=== PATIENT | male | born 1935 | race Caucasian/White ===

== ENCOUNTER → 2018-05-22 16:14 | Outpatient (CLI) | payer MEDICARE, OTHER, SELFPAY ==
--- NOTE | 2018-05-22 | DI.US.S_ITS ---
PROCEDURE: US ARTERIAL DUPLEX LE BI INDICATIONS: LOWER EXTREMITY PAIN TECHNIQUE: Color and pulse Doppler interrogation was performed of both lower extremity arterial systems, with image documentation. COMPARISON: None. FINDINGS: Right lower extremity: Common femoral artery: 174 cm/sec, with biphasic flow. Deep femoral artery: 65 cm/sec, with biphasic flow. Proximal superficial femoral artery: 99 cm/sec, with biphasic flow. Mid superficial femoral artery: 96 cm/sec, with triphasic flow. Distal superficial femoral artery: 109 cm/sec, with triphasic flow. Popliteal artery: 82 cm/sec, with triphasic flow. Posterior tibial artery: 135 cm/sec, with triphasic flow. Anterior tibial artery/dorsalis pedis: 33 cm/sec, with biphasic flow. Haynes-scale imaging description: Mild diffuse plaque Left lower extremity: Common femoral artery: 136 cm/sec, with biphasic flow. Deep femoral artery: 43 cm/sec, with biphasic flow. Proximal superficial femoral artery: 99 cm/sec, with triphasic flow. Mid superficial femoral artery: 97 cm/sec, with triphasic flow. Distal superficial femoral artery: 75 cm/sec, with biphasic flow. Popliteal artery: 103 cm/sec, with triphasic flow. Posterior tibial artery: 86 cm/sec, with triphasic flow. Anterior tibial artery/dorsalis pedis: 13 cm/sec, with monophasic flow. Haynes-scale imaging description: Mild diffuse plaque IMPRESSION: 1. Reduced flow within the left anterior tibial artery. Patent left posterior tibial artery. 2. No evidence of right lower extremity arterial insufficiency. Dictated by: Theodore Galaviz M.D. on 05/22/2018 at 16:55 Approved by: Theodore Galaviz M.D. on 05/22/2018 at 16:57
== END ==
PROVIDERS: PCP Internal Medicine; Visit Provider Internal Medicine
DX: M79.605 Pain in left leg (principal); M79.604 Pain in right leg
CPT/HCPCS: 93925

== ENCOUNTER → 2020-08-29 12:19 | Outpatient (CLI) | payer MEDICARE, OTHER, SELFPAY ==
[2020-08-29 12:47] LABS: Add Manual Diff / Slide Review NO; Basophils Absolute Auto 0 /uL (0-100); Basophils Percent Auto 0.8 % (0-2); Eosinophils Absolute Auto 100 /uL (0-450); Eosinophils Percent Auto 1.6 % (2-4); Hematocrit 48.5 % (41-53); Hemoglobin 16.9 g/dL (13.5-17.5); Lymphocytes Absolute Auto 1500 /uL (1100-4500); Lymphocytes Percent Auto 27.7 % (25-40); Mean Corpuscular Hemoglobin 31.1 PG (26-34); Mean Corpuscular Volume 88.9 fL (80-100); Monocytes Absolute Auto 500 /uL (0-900); Monocytes Percent Auto 8.5 % (3-14); Neutrophils Absolute Auto 3400 /uL (1500-7000); Neutrophils Percent Auto 61.4 % (50-75); Platelet Count 117 X10^3/uL (150-400); Red Blood Cell Count 5.45 X10^6/uL (4.5-5.9); Red Cell Distribution Width 13.7 % (11.6-14.8); White Blood Cell Count 5.5 X10^3/uL (4.5-11.0)
[2020-08-29 13:05] LABS: Uric Acid 4.4 mg/dL (3.5-8.5)
[2020-08-29 13:28] LABS: Erythrocyte Sedimentation Rate 1 MM/HR (0-15)
== END ==
PROVIDERS: PCP Internal Medicine; Referring Provider Dermatology; Visit Provider Dermatology
DX: L03.90 Cellulitis, unspecified (principal)
CPT/HCPCS: 36415; 84550; 85025; 85651

== ENCOUNTER → 2020-09-27 13:04 | Outpatient (ROUT) | payer MEDICARE, OTHER, SELFPAY | PROVIDERS: PCP Internal Medicine; Visit Provider Dermatology | DX: E11.621 Type 2 diabetes mellitus with foot ulcer (principal); L08.9 Local infection of the skin and subcutaneous tissue, unspecified | CPT/HCPCS: 87070; 87075; 87077; 87186; 87205 ==

== ENCOUNTER → 2020-10-05 14:44 | Outpatient (CLI) | payer MEDICARE, OTHER, SELFPAY | PROVIDERS: Referring Provider Dermatology; Visit Provider Family Medicine | DX: E11.621 Type 2 diabetes mellitus with foot ulcer (principal); L97.516 Non-pressure chronic ulcer of other part of right foot with bone involvement without evidence of necrosis; L03.031 Cellulitis of right toe; E11.40 Type 2 diabetes mellitus with diabetic neuropathy, unspecified; Z79.2 Long term (current) use of antibiotics | CPT/HCPCS: 11042; 73630; 93922; 97597; 99205; 99213 ==

== ENCOUNTER → 2020-10-05 16:00 | Outpatient (CLI) | payer MEDICARE, OTHER, SELFPAY ==
--- NOTE | 2020-10-05 16:04 | DI.RAD.S_ITS ---
PROCEDURE: XR FOOT RT MIN 3V INDICATIONS: RIGHT FOOT INFECTION TECHNIQUE: 3 views of the foot were acquired. COMPARISON: None. FINDINGS: Bones: No fracture. No definite focal osseous destruction. Moderate 1st MTP joint degeneration. Scattered degenerative subchondral sclerosis and spurring. Small os peroneum. Prominent dorsal osteophytes at the 1st MTP joint. Soft tissues: Great toe soft tissue swelling and possible skin ulceration. IMPRESSION: No focal osseous destruction to suggest advanced osteomyelitis. If there is persistent clinical concern, continued short interval radiographic followup or contrast enhanced MRI could be performed to assess for early infection. Great toe soft tissue swelling. Dictated by: Lawson Alaniz M.D. on 10/05/2020 at 16:48 Approved by: Lawson Alaniz M.D. on 10/05/2020 at 16:52
== END ==
PROVIDERS: Referring Provider Family Medicine; Visit Provider Family Medicine
DX: L97.516 Non-pressure chronic ulcer of other part of right foot with bone involvement without evidence of necrosis (principal)
CPT/HCPCS: 73630

== ENCOUNTER → 2020-10-10 13:04 | Outpatient (CLI) | payer MEDICARE, OTHER, SELFPAY | PROVIDERS: Referring Provider Dermatology; Visit Provider Family Medicine | DX: E11.621 Type 2 diabetes mellitus with foot ulcer (principal); L97.516 Non-pressure chronic ulcer of other part of right foot with bone involvement without evidence of necrosis; Z48.01 Encounter for change or removal of surgical wound dressing | CPT/HCPCS: 99212 ==

== ENCOUNTER → 2020-10-12 10:32 | Outpatient (CLI) | payer MEDICARE, OTHER, SELFPAY | PROVIDERS: Referring Provider Dermatology; Visit Provider Family Medicine | DX: E11.621 Type 2 diabetes mellitus with foot ulcer (principal); L97.513 Non-pressure chronic ulcer of other part of right foot with necrosis of muscle; E11.40 Type 2 diabetes mellitus with diabetic neuropathy, unspecified; Z79.2 Long term (current) use of antibiotics | CPT/HCPCS: 11042; 99213 ==

== ENCOUNTER → 2020-10-19 07:06 | Outpatient (CLI) | payer MEDICARE, OTHER, SELFPAY ==
--- NOTE | 2020-10-19 | DI.MRI.S_ITS ---
PROCEDURE: MR FOOT RT WO/W CON INDICATIONS: Non-pressure chronic ulcer TECHNIQUE: Noncontrast coronal T1 spin echo and STIR, sagittal T1 spin echo with fat saturation and STIR, axial T1 spin echo and T2 fast spin echo with fat saturation. After the administration of contrast, axial/sagittal/coronal T1 spin echo with fat saturation through the right foot . COMPARISON: None. FINDINGS: Image quality: Excellent. Bones: There is no marrow edema. No cortical erosion or destruction. No periosteal reaction. Mild to moderate osteoarthritic changes are noted involving 1st MTP joint and articulation between 1st metatarsal head and sesamoids. Mild osteoarthritic changes are also noted involving interphalangeal joints. No suspicious intraosseous lesion. No fracture or dislocation. Soft tissues: Deep ulceration involving plantar and medial aspect of 1st metatarsal head at the level of 1st interphalangeal joint is seen. There is surrounding soft tissue swelling and edema predominantly along plantar aspect of great toe suggestive of cellulitis. No discrete drainable abscess collection is seen. The scanned muscles demonstrate normal overall bulk and internal signal. Flexor and extensor tendons of forefoot are grossly intact. Lisfranc ligament and joint is intact. IMPRESSION: 1. Ulceration involving plantar medial aspect of great toe at the level of 1st interphalangeal joint with surrounding cellulitis. No discrete drainable abscess collection is identified. 2. No evidence of osteomyelitis is seen in right foot. 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 Dictated by: Barrera Horne M.D. on 10/19/2020 at 10:12 Approved by: Barrera Horne M.D. on 10/19/2020 at 10:29
== END ==
PROVIDERS: PCP Family Medicine; Referring Provider Family Medicine; Visit Provider Family Medicine
DX: L97.516 Non-pressure chronic ulcer of other part of right foot with bone involvement without evidence of necrosis (principal); L03.031 Cellulitis of right toe; M19.071 Primary osteoarthritis, right ankle and foot
CPT/HCPCS: 73720

== ENCOUNTER → 2020-10-19 09:04 | Outpatient (CLI) | payer MEDICARE, OTHER, SELFPAY | PROVIDERS: PCP Family Medicine; Referring Provider Dermatology; Visit Provider Family Medicine | DX: L97.516 Non-pressure chronic ulcer of other part of right foot with bone involvement without evidence of necrosis (principal); L03.031 Cellulitis of right toe; M19.071 Primary osteoarthritis, right ankle and foot; E11.621 Type 2 diabetes mellitus with foot ulcer; L97.515 Non-pressure chronic ulcer of other part of right foot with muscle involvement without evidence of necrosis; E11.40 Type 2 diabetes mellitus with diabetic neuropathy, unspecified; Z79.2 Long term (current) use of antibiotics | CPT/HCPCS: 11042; 73720 ==

== ENCOUNTER → 2020-10-25 11:06 | Outpatient (CLI) | payer MEDICARE, OTHER, SELFPAY | PROVIDERS: Referring Provider Dermatology; Visit Provider Family Medicine | DX: I87.2 Venous insufficiency (chronic) (peripheral) (principal); L97.515 Non-pressure chronic ulcer of other part of right foot with muscle involvement without evidence of necrosis; Z48.01 Encounter for change or removal of surgical wound dressing | CPT/HCPCS: 99213 ==

== ENCOUNTER → 2020-11-01 11:24 | Outpatient (CLI) | payer MEDICARE, OTHER, SELFPAY | PROVIDERS: Referring Provider Dermatology; Visit Provider Family Medicine | DX: E11.621 Type 2 diabetes mellitus with foot ulcer (principal); L97.512 Non-pressure chronic ulcer of other part of right foot with fat layer exposed; E11.40 Type 2 diabetes mellitus with diabetic neuropathy, unspecified | CPT/HCPCS: 11042 ==

== ENCOUNTER → 2020-11-03 13:18 | Outpatient (CLI) | payer MEDICARE, OTHER, SELFPAY | PROVIDERS: Referring Provider Dermatology; Visit Provider Family Medicine | DX: E11.621 Type 2 diabetes mellitus with foot ulcer (principal); L97.512 Non-pressure chronic ulcer of other part of right foot with fat layer exposed | CPT/HCPCS: 29445 ==

== ENCOUNTER → 2020-11-10 13:16 | Outpatient (CLI) | payer MEDICARE, OTHER, SELFPAY | PROVIDERS: Referring Provider Dermatology; Visit Provider Family Medicine | DX: E11.621 Type 2 diabetes mellitus with foot ulcer (principal); L97.512 Non-pressure chronic ulcer of other part of right foot with fat layer exposed; E11.40 Type 2 diabetes mellitus with diabetic neuropathy, unspecified | CPT/HCPCS: 15275; Q4105 ==

== ENCOUNTER → 2020-11-17 15:03 | Outpatient (CLI) | payer MEDICARE, OTHER, SELFPAY | PROVIDERS: Referring Provider Dermatology; Visit Provider Family Medicine | DX: E11.621 Type 2 diabetes mellitus with foot ulcer (principal); L97.512 Non-pressure chronic ulcer of other part of right foot with fat layer exposed; E11.40 Type 2 diabetes mellitus with diabetic neuropathy, unspecified; R60.0 Localized edema | CPT/HCPCS: 15275; Q4137 ==

== ENCOUNTER → 2020-11-24 12:09 | Outpatient (CLI) | payer MEDICARE, OTHER, SELFPAY | PROVIDERS: Referring Provider Dermatology; Visit Provider Nurse Practitioner Family | DX: E11.621 Type 2 diabetes mellitus with foot ulcer (principal); L97.512 Non-pressure chronic ulcer of other part of right foot with fat layer exposed; E11.51 Type 2 diabetes mellitus with diabetic peripheral angiopathy without gangrene; E11.40 Type 2 diabetes mellitus with diabetic neuropathy, unspecified | CPT/HCPCS: 15275; 99213; Q4137 ==

== ENCOUNTER → 2020-12-01 11:24 | Outpatient (CLI) | payer MEDICARE, OTHER, SELFPAY | PROVIDERS: Referring Provider Dermatology; Visit Provider Family Medicine | DX: E11.621 Type 2 diabetes mellitus with foot ulcer (principal); E11.40 Type 2 diabetes mellitus with diabetic neuropathy, unspecified; L97.511 Non-pressure chronic ulcer of other part of right foot limited to breakdown of skin | CPT/HCPCS: 15275; Q4105 ==

== ENCOUNTER → 2020-12-08 11:54 | Outpatient (CLI) | payer MEDICARE, OTHER, SELFPAY | PROVIDERS: Referring Provider Dermatology; Visit Provider Family Medicine | DX: E11.621 Type 2 diabetes mellitus with foot ulcer (principal); L97.512 Non-pressure chronic ulcer of other part of right foot with fat layer exposed; L03.125 Acute lymphangitis of right lower limb; E11.40 Type 2 diabetes mellitus with diabetic neuropathy, unspecified | CPT/HCPCS: 29445; 99213 ==

== ENCOUNTER → 2020-12-15 14:19 | Outpatient (CLI) | payer MEDICARE, OTHER, SELFPAY | PROVIDERS: PCP Dermatology; Referring Provider Dermatology; Visit Provider Family Medicine | DX: E11.621 Type 2 diabetes mellitus with foot ulcer (principal); L97.511 Non-pressure chronic ulcer of other part of right foot limited to breakdown of skin; E11.40 Type 2 diabetes mellitus with diabetic neuropathy, unspecified | CPT/HCPCS: 97597 ==

== ENCOUNTER → 2020-12-20 10:20 | Outpatient (CLI) | payer MEDICARE, OTHER, SELFPAY | PROVIDERS: PCP Dermatology; Referring Provider Dermatology; Visit Provider Family Medicine | DX: E11.621 Type 2 diabetes mellitus with foot ulcer (principal); L97.511 Non-pressure chronic ulcer of other part of right foot limited to breakdown of skin; E11.40 Type 2 diabetes mellitus with diabetic neuropathy, unspecified | CPT/HCPCS: 11042 ==

== ENCOUNTER → 2020-12-27 14:30 | Outpatient (CLI) | payer MEDICARE, OTHER, SELFPAY | PROVIDERS: PCP Dermatology; Referring Provider Dermatology; Visit Provider Family Medicine | DX: E11.40 Type 2 diabetes mellitus with diabetic neuropathy, unspecified (principal) | CPT/HCPCS: 99213 ==

== ENCOUNTER → 2021-01-03 13:38 | Outpatient (CLI) | payer MEDICARE, OTHER, SELFPAY | PROVIDERS: PCP Dermatology; Referring Provider Dermatology; Visit Provider Family Medicine | DX: E11.40 Type 2 diabetes mellitus with diabetic neuropathy, unspecified (principal); Z86.31 Personal history of diabetic foot ulcer | CPT/HCPCS: 99212; 99213 ==

== ENCOUNTER → 2021-01-19 15:34 | Outpatient (CLI) | payer MEDICARE, OTHER, SELFPAY | PROVIDERS: PCP Dermatology; Referring Provider Dermatology; Visit Provider Family Medicine | DX: E11.621 Type 2 diabetes mellitus with foot ulcer (principal); L97.511 Non-pressure chronic ulcer of other part of right foot limited to breakdown of skin; E11.40 Type 2 diabetes mellitus with diabetic neuropathy, unspecified | CPT/HCPCS: 97597; 99213 ==

== ENCOUNTER → 2021-01-26 15:16 | Outpatient (CLI) | payer MEDICARE, OTHER, SELFPAY | PROVIDERS: PCP Dermatology; Referring Provider Dermatology; Visit Provider Family Medicine | DX: E11.40 Type 2 diabetes mellitus with diabetic neuropathy, unspecified (principal); Z86.31 Personal history of diabetic foot ulcer | CPT/HCPCS: 99213 ==

== ENCOUNTER → 2021-03-06 10:54 | Outpatient (CLI) | payer MEDICARE, OTHER, SELFPAY | PROVIDERS: PCP Dermatology; Referring Provider Dermatology; Visit Provider Family Medicine | DX: E11.621 Type 2 diabetes mellitus with foot ulcer (principal); L97.511 Non-pressure chronic ulcer of other part of right foot limited to breakdown of skin; M20.21 Hallux rigidus, right foot; E11.40 Type 2 diabetes mellitus with diabetic neuropathy, unspecified | CPT/HCPCS: 11042; 87070; 87075; 87077; 87185; 87186; 87205; 99213; 99214 ==

== ENCOUNTER → 2021-03-13 10:43 | Outpatient (CLI) | payer MEDICARE, OTHER, SELFPAY | PROVIDERS: PCP Dermatology; Referring Provider Dermatology; Visit Provider Family Medicine | DX: E11.621 Type 2 diabetes mellitus with foot ulcer (principal); L97.511 Non-pressure chronic ulcer of other part of right foot limited to breakdown of skin; L84 Corns and callosities | CPT/HCPCS: 97597 ==

== ENCOUNTER → 2021-03-21 10:12 | Outpatient (CLI) | payer MEDICARE, OTHER, SELFPAY | PROVIDERS: PCP Dermatology; Referring Provider Dermatology; Visit Provider Family Medicine | DX: E11.621 Type 2 diabetes mellitus with foot ulcer (principal); L97.511 Non-pressure chronic ulcer of other part of right foot limited to breakdown of skin; E11.40 Type 2 diabetes mellitus with diabetic neuropathy, unspecified; M20.21 Hallux rigidus, right foot | CPT/HCPCS: 99213 ==

== ENCOUNTER → 2021-04-04 09:38 | Outpatient (CLI) | payer MEDICARE, OTHER, SELFPAY | PROVIDERS: PCP Dermatology; Referring Provider Dermatology; Visit Provider Family Medicine | DX: Z09 Encounter for follow-up examination after completed treatment for conditions other than malignant neoplasm (principal); L84 Corns and callosities; E11.628 Type 2 diabetes mellitus with other skin complications; L85.9 Epidermal thickening, unspecified | CPT/HCPCS: 99212; 99213 ==

== ENCOUNTER → 2021-04-18 11:27 | Outpatient (CLI) | payer MEDICARE, OTHER, SELFPAY | PROVIDERS: PCP Dermatology; Referring Provider Dermatology; Visit Provider Family Medicine | DX: M20.21 Hallux rigidus, right foot (principal); E11.49 Type 2 diabetes mellitus with other diabetic neurological complication; Z09 Encounter for follow-up examination after completed treatment for conditions other than malignant neoplasm; Z86.31 Personal history of diabetic foot ulcer | CPT/HCPCS: 99212; 99213 ==

== ENCOUNTER → 2021-08-15 14:30 | Outpatient (CLI) | payer MEDICARE, OTHER, SELFPAY | PROVIDERS: PCP Dermatology; Referring Provider Nurse Practitioner Psychiatric/Mental Health; Visit Provider Family Medicine | DX: E11.621 Type 2 diabetes mellitus with foot ulcer (principal); L97.512 Non-pressure chronic ulcer of other part of right foot with fat layer exposed; L08.9 Local infection of the skin and subcutaneous tissue, unspecified; L84 Corns and callosities; E11.40 Type 2 diabetes mellitus with diabetic neuropathy, unspecified; M21.271 Flexion deformity, right ankle and toes | CPT/HCPCS: 11042; 87070; 87075; 87205; 99213; 99214 ==

== ENCOUNTER → 2021-08-23 09:48 | Outpatient (CLI) | payer MEDICARE, OTHER, SELFPAY | PROVIDERS: PCP Dermatology; Referring Provider Dermatology; Visit Provider Family Medicine | DX: E11.621 Type 2 diabetes mellitus with foot ulcer (principal); L97.512 Non-pressure chronic ulcer of other part of right foot with fat layer exposed; L84 Corns and callosities; E11.40 Type 2 diabetes mellitus with diabetic neuropathy, unspecified; M21.271 Flexion deformity, right ankle and toes | CPT/HCPCS: 11042; 93922 ==

== ENCOUNTER → 2021-08-30 13:57 | Outpatient (CLI) | payer MEDICARE, OTHER, SELFPAY | PROVIDERS: PCP Dermatology; Referring Provider Nurse Practitioner Psychiatric/Mental Health; Visit Provider Family Medicine | DX: E11.621 Type 2 diabetes mellitus with foot ulcer (principal); L97.512 Non-pressure chronic ulcer of other part of right foot with fat layer exposed; E11.40 Type 2 diabetes mellitus with diabetic neuropathy, unspecified; M21.271 Flexion deformity, right ankle and toes | CPT/HCPCS: 11042 ==

== ENCOUNTER → 2021-09-07 13:36 | Outpatient (CLI) | payer MEDICARE, OTHER, SELFPAY | PROVIDERS: PCP Dermatology; Referring Provider Dermatology; Visit Provider Family Medicine | DX: E11.621 Type 2 diabetes mellitus with foot ulcer (principal); L97.512 Non-pressure chronic ulcer of other part of right foot with fat layer exposed; L84 Corns and callosities; E11.40 Type 2 diabetes mellitus with diabetic neuropathy, unspecified | CPT/HCPCS: 11042 ==

== ENCOUNTER → 2021-09-21 13:32 | Outpatient (CLI) | payer MEDICARE, OTHER, SELFPAY | PROVIDERS: PCP Dermatology; Referring Provider Dermatology; Visit Provider Family Medicine | DX: E11.621 Type 2 diabetes mellitus with foot ulcer (principal); L97.512 Non-pressure chronic ulcer of other part of right foot with fat layer exposed; S90.421A Blister (nonthermal), right great toe, initial encounter; E11.40 Type 2 diabetes mellitus with diabetic neuropathy, unspecified | CPT/HCPCS: 11042 ==

== ENCOUNTER → 2021-09-28 11:29 | Outpatient (CLI) | payer MEDICARE, OTHER, SELFPAY | PROVIDERS: PCP Dermatology; Referring Provider Dermatology; Visit Provider Family Medicine | DX: E11.621 Type 2 diabetes mellitus with foot ulcer (principal); L97.512 Non-pressure chronic ulcer of other part of right foot with fat layer exposed; L84 Corns and callosities; E11.40 Type 2 diabetes mellitus with diabetic neuropathy, unspecified; Z79.84 Long term (current) use of oral hypoglycemic drugs | CPT/HCPCS: 15275; 99213; Q4105 ==

== ENCOUNTER → 2021-10-05 11:33 | Outpatient (CLI) | payer MEDICARE, OTHER, SELFPAY | PROVIDERS: PCP Dermatology; Referring Provider Dermatology; Visit Provider Family Medicine | DX: E11.621 Type 2 diabetes mellitus with foot ulcer (principal); L97.512 Non-pressure chronic ulcer of other part of right foot with fat layer exposed; L84 Corns and callosities; E11.40 Type 2 diabetes mellitus with diabetic neuropathy, unspecified; Z79.84 Long term (current) use of oral hypoglycemic drugs | CPT/HCPCS: 15275; Q4137 ==

== ENCOUNTER → 2021-10-12 10:53 | Outpatient (CLI) | payer MEDICARE, OTHER, SELFPAY | PROVIDERS: PCP Dermatology; Referring Provider Dermatology; Visit Provider Family Medicine | DX: E11.40 Type 2 diabetes mellitus with diabetic neuropathy, unspecified (principal); Z87.2 Personal history of diseases of the skin and subcutaneous tissue | CPT/HCPCS: 99212; 99213 ==

== ENCOUNTER → 2021-10-18 11:29 | Outpatient (CLI) | payer MEDICARE, OTHER, SELFPAY | PROVIDERS: PCP Dermatology; Referring Provider Dermatology; Visit Provider Family Medicine | DX: Z09 Encounter for follow-up examination after completed treatment for conditions other than malignant neoplasm (principal); E11.40 Type 2 diabetes mellitus with diabetic neuropathy, unspecified; Z87.2 Personal history of diseases of the skin and subcutaneous tissue | CPT/HCPCS: 99212 ==

== ENCOUNTER 2022-07-18 21:45 | Emergency (ER) | payer MEDICARE, OTHER, SELFPAY ==
[2022-07-18 21:58] VITALS: BP 220/97; PULSE 59; RESP 16; TEMP 36.4; O2SAT 96; BMI 27.9
[2022-07-18 22:43] LABS: Alanine Aminotransferase 40 IU/L (<50); Albumin 4.3 g/dL (3.5-5.0); Albumin Globulin Ratio 1.7 (1.0-2.8); Alkaline Phosphatase 46 U/L (38-126); Aspartate Aminotransferase 27 IU/L (17-59); Bilirubin Total 1.4 mg/dL (0.2-1.3); Blood Urea Nitrogen 20 mg/dL (9-20); Calcium 8.7 mg/dL (8.4-10.2); Carbon Dioxide 32 mmol/L (22-32); Chloride 97 mmol/L (98-107); Estimated Glomerular Filt Rate > 60 mL/min (>60); Globulin 2.6 g/dL (1.7-4.1); Glucose 120 mg/dL (80-110); HEMOLYSIS 23 (0-50); Lipase 242 U/L (23-300); Potassium 3.4 mmol/L (3.4-5.1); Sodium 135 mmol/L (137-145); Total Protein 6.9 g/dL (6.3-8.2)
[2022-07-18 22:45] LABS: Basophils Absolute Auto 100 /uL (0-100); Basophils Percent Auto 0.9 % (0-2); Eosinophils Absolute Auto 100 /uL (0-450); Eosinophils Percent Auto 1.8 % (2-4); Hematocrit 48.1 % (41-53); Hemoglobin 17.3 g/dL (13.5-17.5); Lymphocytes Absolute Auto 1400 /uL (1100-4500); Lymphocytes Percent Auto 23.1 % (25-40); Mean Corpuscular HGB Conc 36.1 % (30-36); Mean Corpuscular Hemoglobin 31.2 PG (26-34); Mean Corpuscular Volume 86.5 fL (80-100); Monocytes Absolute Auto 600 /uL (0-900); Monocytes Percent Auto 9.6 % (3-14); Neutrophils Absolute Auto 4000 /uL (1500-7000); Neutrophils Percent Auto 64.6 % (50-75); Platelet Count 125 X10^3/uL (150-400); Red Blood Cell Count 5.56 X10^6/uL (4.5-5.9); Red Cell Distribution Width 13.7 % (11.6-14.8); White Blood Cell Count 6.2 X10^3/uL (4.5-11.0)
[2022-07-18 22:46] LABS: Add Manual Diff / Slide Review SLIDE REVIEW
[2022-07-18 22:53] VITALS: BP 212/90; PULSE 70; RESP 16; O2SAT 99
[2022-07-18 23:04] LABS: Creatine Kinase 60 U/L (55-170); Rouleaux 1+
[2022-07-18 23:17] LABS: Troponin I 0.012 ng/mL (0.01-0.034)
[2022-07-18 23:22] VITALS: BP 191/87; PULSE 64
[2022-07-18] MEDS: hydroCHLOROthiazide 25 MG TABLET PO (23:22)
[2022-07-18] MEDS: atenoloL 50 MG TABLET PO (23:22)
[2022-07-18] MEDS: lisinopriL 20 MG TABLET PO (23:22)
[2022-07-18] MEDS: ONDANSETRON 4 MG ODT PO (23:22)
[2022-07-18 23:33] LABS: Influenza A - CEPHEID Flu A NEGATIVE (NEGATIVE); Influenza B - CEPHEID Flu B NEGATIVE (NEGATIVE); Respiratory Syncytial Virus Negative (Negative)
[2022-07-18 23:35] VITALS: PULSE 51; O2SAT 98
[2022-07-18 23:37] VITALS: BP 199/94; PULSE 52; O2SAT 97
[2022-07-18 23:40] LABS: COVID-19 CEPHEID 4-PLEX PCR Negative (Negative)
[2022-07-18 23:46] VITALS: BP 213/94; PULSE 50; O2SAT 96
--- NOTE | 2022-07-18 23:54 | ED.NAVMDI ---
HPI - Nausea/Vomiting/Diarrhea General Chief complaint: Nausea/Vomiting/Diarrhea Stated complaint: very high blood pressue ~200 all day, diabetic Time Seen by Provider: 07/18/22 22:48 Source: patient Mode of arrival: Family Vehicle Limitations: no limitations History of Present Illness HPI Narrative: Patient is an 87-year-old male. Is a diabetic. Also has a history of high blood pressure. Several weeks ago around the time of he had episodes where he was having nausea and vomiting and some headaches. 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 He is not been on it for several weeks now. Since that time he has had off and on issues with vomiting. He states that he also has been more constipated. He is having bowel movements but instead of having it every day it is now every 3 days. With the past couple days he is had vomiting. He is not been able to take any of his blood pressure medications. He denies chest pain. No shortness of breath. The time of my exam he was no longer nauseous she did receive Zofran. He was able to take his blood pressure medications prior to my initial evaluation as well. He is no abdominal tenderness. No lower extremity swelling. Related Data Home Medications Medication Instructions Recorded Confirmed aspirin 81 mg tablet,delayed ##0 04/17/16 06/24/21 release atorvastatin 10 mg tablet (Lipitor) ##0 04/17/16 06/24/21 gabapentin 300 mg capsule ##0 04/17/16 06/24/21 (Neurontin) omeprazole 10 mg capsule,delayed ##0 04/17/16 06/24/21 release tizanidine 2 mg capsule (Zanaflex) ##0 04/17/16 06/24/21 acetaminophen 325 mg tablet 650 mg PO ##0 09/09/17 06/24/21 atenolol 50 mg tablet 50 mg PO BID 06/24/21 07/18/22 duloxetine 60 mg capsule,delayed 60 mg PO DAILY 06/24/21 06/24/21 release hydrochlorothiazide 25 mg tablet 25 mg PO DAILY 07/18/22 07/18/22 lisinopril 20 mg tablet 20 mg PO DAILY 07/18/22 07/18/22 Previous Rx's Medication Instructions Recorded naproxen 500 mg tablet (Naprosyn) 500 mg PO BIDCC #30 tabs 06/18/16 ondansetron 4 mg disintegrating 4 mg PO Q6H PRN nausea and 07/18/22 tablet vomiting #10 tabs Allergies Allergy/AdvReac Type Severity Reaction Status Date / Time amoxicillin AdvReac Verified 07/18/22 22:08 glipizide AdvReac Verified 07/18/22 22:08 metformin AdvReac Verified 07/18/22 22:08 nortriptyline AdvReac Verified 07/18/22 22:08 Review of Systems Constitutional Constitutional: Reports system reviewed and no additional complaints, except as documented Cardiovascular Cardiovascular: Reports system reviewed and no additional complaints, except as documented Respiratory Respiratory: Reports system reviewed and no additional complaints, except as documented Gastrointestinal Gastrointestinal: Reports system reviewed and no additional complaints, except as documented Integumentary/Breasts Skin/Breast: Reports system reviewed and no additional complaints, except as documented Neurologic Neurologic: Reports system reviewed and no additional complaints, except as documented Hematologic/Lymphatic On Anticoagulants: No Patient History Medical History (Updated 07/19/22 @ 05:50 by Tin Ghosh DO) Diabetes Hypertension Social History Smoking Status: Never smoker Smoking Status: Never smoker alcohol intake frequency: a few times a week Substance Use Type: does not use Exam Initial Vital Signs Initial Vital Signs: Vital Signs Temperature 97.6 F 07/18/22 21:58 Pulse Rate 59 L 07/18/22 21:58 Respiratory Rate 16 07/18/22 21:58 Blood Pressure 220/97 H 07/18/22 21:58 Pulse Oximetry 96 07/18/22 21:58 Oxygen Delivery Method 07/18/22 21:58 Const General: cooperative and comfortable HENMT Head: normal to inspection and normocephalic Resp Effort & Inspection: normal respiratory effort Auscultation: clear to auscultation bilaterally Cardio Rate: regular rate and bradycardic Rhythm: regular rhythm GI Inspection: normal to inspection Palpation: soft, No firm and No tender Skin General: no rashes or lesions noted Neuro General: patient alert, patient awake and moves all extremities Extrem General: capillary refill normal Course Orders Ordered: ED Orders 07/18/22 22:09 EKG-12 Lead Stat 07/18/22 22:19 Covid-19 + FLU A/B + RSV - PCR Stat 07/18/22 22:20 Complete Blood Count AUTO DIFF Stat Comprehensive Metabolic Panel Stat Lipase Stat Troponin & CK Cardiac Panel Stat Discontinued Medications Atenolol (Atenolol 50 Mg Tablet) 50 mg PO NOW ONE Stop: 07/18/22 22:59 Last Admin: 07/18/22 23:22 Dose: 50 mg Documented By: RB Hydrochlorothiazide (Hydrochlorothiazide 25 Mg Tablet) 25 mg PO NOW ONE Stop: 07/18/22 22:59 Last Admin: 07/18/22 23:22 Dose: 25 mg Documented By: RB Lisinopril (Lisinopril 20 Mg Tablet) 20 mg PO NOW ONE Stop: 07/18/22 22:59 Last Admin: 07/18/22 23:22 Dose: 20 mg Documented By: JILLIAN Ondansetron HCl (Ondansetron 4 Mg Odt) 4 mg PO NOW PRN PRN Reason: Nausea And Vomiting Last Admin: 07/18/22 23:22 Dose: 4 mg Documented By: JILLIAN Ondansetron HCl (Ondansetron 4 Mg/2 Ml Inj) 4 mg IV NOW PRN PRN Reason: Nausea And Vomiting Ondansetron HCl (Ondansetron 4 Mg Odt Prepack) 1 bottle MISC SEEINSTR ONE Stop: 07/18/22 23:56 Last Admin: 07/19/22 00:07 Dose: 1 bottle Documented By: JILLIAN Vital Signs Vital signs: Vital Signs - 8 hr 07/18/22 21:58 07/18/22 22:53 07/18/22 23:22 Temperature 97.6 F Pulse Rate 59 L 70 64 Respiratory Rate 16 16 Blood Pressure 220/97 H 212/90 H 191/87 H Pulse Oximetry 96 99 Oxygen Delivery Method Room Air Room Air 07/18/22 23:35 07/18/22 23:37 07/18/22 23:37 Temperature Pulse Rate 51 L 52 L Respiratory Rate Blood Pressure 199/94 H Pulse Oximetry 98 97 Oxygen Delivery Method 07/18/22 23:46 07/18/22 23:46 07/19/22 00:00 Temperature Pulse Rate 50 L 50 L Respiratory Rate Blood Pressure 213/94 H Pulse Oximetry 96 96 Oxygen Delivery Method 07/19/22 00:01 07/19/22 00:01 07/19/22 00:16 Temperature Pulse Rate 50 L Respiratory Rate Blood Pressure 186/69 H 189/108 H Pulse Oximetry 97 Oxygen Delivery Method 07/19/22 00:16 Temperature Pulse Rate 50 L Respiratory Rate Blood Pressure Pulse Oximetry 94 Oxygen Delivery Method MDM - Nausea/Vomiting/Diarrhea Lab Data Attestation: I reviewed the patient's lab results. Result diagrams: 07/18/22 22:20 07/18/22 22:20 Labs: Lab Results 07/18/22 07/18/22 07/18/22 Range/Units 22:19 22:20 22:20 WBC 6.2 (4.5-11.0) X10^3/uL RBC 5.56 (4.5-5.9) X10^6/uL Hgb 17.3 (13.5-17.5) g/dL Hct 48.1 (41-53) % MCV 86.5 (80-100) fL MCH 31.2 (26-34) PG MCHC 36.1 H (30-36) % RDW 13.7 (11.6-14.8) % Plt Count 125 L (150-400) X10^3/uL Neut % (Auto) 64.6 (50-75) % Lymph % (Auto) 23.1 L (25-40) % Duval % (Auto) 9.6 (3-14) % Eos % (Auto) 1.8 L (2-4) % Baso % (Auto) 0.9 (0-2) % Neut # (Auto) 4000 (9043-4953) /uL Lymph # (Auto) 1400 (2591-4300) /uL Duval # (Auto) 600 (0-900) /uL Eos # (Auto) 100 (0-450) /uL Baso # (Auto) 100 (0-100) /uL RBC Morphology See below Rouleaux 1+ H Sodium 135 L (137-145) mmol/L Potassium 3.4 (3.4-5.1) mmol/L Chloride 97 L (98-107) mmol/L Carbon Dioxide 32 (22-32) mmol/L BUN 20 (9-20) mg/dL Creatinine 0.87 (0.66-1.25) mg/dL Estimated GFR > 60 (>60) mL/min BUN/Creatinine Ratio 23.0 H (6-22) Glucose 120 H (80-110) mg/dL Calcium 8.7 (8.4-10.2) mg/dL Total Bilirubin 1.4 H (0.2-1.3) mg/dL AST 27 (17-59) IU/L ALT 40 (<50) IU/L Alkaline Phosphatase 46 (38-126) U/L Total Creatine Kinase (55-170) U/L CK-MB (CK-2) CK-MB (CK-2) Rel Index Troponin I (0.01-0.034) ng/mL Total Protein 6.9 (6.3-8.2) g/dL Albumin 4.3 (3.5-5.0) g/dL Globulin 2.6 (1.7-4.1) g/dL Albumin/Globulin Ratio 1.7 (1.0-2.8) Lipase 242 (23-300) U/L SARS-CoV-2 (PCR) Negative (Negative) Influenza A (RT-PCR) Flu a negative (NEGATIVE) Influenza B (RT-PCR) Flu b negative (NEGATIVE) RSV (PCR) Negative (Negative) 07/18/22 Range/Units 22:20 WBC (4.5-11.0) X10^3/uL RBC (4.5-5.9) X10^6/uL Hgb (13.5-17.5) g/dL Hct (41-53) % MCV (80-100) fL MCH (26-34) PG MCHC (30-36) % RDW (11.6-14.8) % Plt Count (150-400) X10^3/uL Neut % (Auto) (50-75) % Lymph % (Auto) (25-40) % Duval % (Auto) (3-14) % Eos % (Auto) (2-4) % Baso % (Auto) (0-2) % Neut # (Auto) (6506-6008) /uL Lymph # (Auto) (6798-2150) /uL Duval # (Auto) (0-900) /uL Eos # (Auto) (0-450) /uL Baso # (Auto) (0-100) /uL RBC Morphology Rouleaux Sodium (137-145) mmol/L Potassium (3.4-5.1) mmol/L Chloride (98-107) mmol/L Carbon Dioxide (22-32) mmol/L BUN (9-20) mg/dL Creatinine (0.66-1.25) mg/dL Estimated GFR (>60) mL/min BUN/Creatinine Ratio (6-22) Glucose (80-110) mg/dL Calcium (8.4-10.2) mg/dL Total Bilirubin (0.2-1.3) mg/dL AST (17-59) IU/L ALT (<50) IU/L Alkaline Phosphatase (38-126) U/L Total Creatine Kinase 60 (55-170) U/L CK-MB (CK-2) TNP CK-MB (CK-2) Rel Index TNP Troponin I 0.012 (0.01-0.034) ng/mL Total Protein (6.3-8.2) g/dL Albumin (3.5-5.0) g/dL Globulin (1.7-4.1) g/dL Albumin/Globulin Ratio (1.0-2.8) Lipase (23-300) U/L SARS-CoV-2 (PCR) (Negative) Influenza A (RT-PCR) (NEGATIVE) Influenza B (RT-PCR) (NEGATIVE) RSV (PCR) (Negative) Point of Care Testing Glucose POC 120 ECG Data Attestation: I personally reviewed and interpreted this ECG as follows: Interpretation: Sinus bradycardia Ventricular rate of 52 Normal axis Normal QRS Normal QTC No ST T wave changes MDM Narrative Medical decision making narrative: Patient is hypertensive but no indication of acute end-organ damage from this to include subarachnoid hemorrhage, CHF, pulmonary edema, ACS. Patient is bradycardic but he states that is normal for him. He is hypertensive because he has not been taking his blood pressure medicines because he has been vomiting. Unsure the etiology of the vomiting is labs unremarkable. His abdomen is soft. Not tender. He is still having bowel movements. No fevers. Suspicion for acute intra-abdominal surgical pathology given his exam and labs today. He does not have any nausea medication at home. He received nausea medication here in the ER and was able tolerate his blood pressure medications afterwards. We will hold on any radiologic studies for now. Will discharge him home with Zofran. Will take this medication as needed. Will return if his symptoms continue or worsen or if he develops any new symptoms. He expressed understanding and agreement with this plan. Discharge Plan Departure Patient Disposition: Home Clinical Impression: Hypertension, Nausea and vomiting Instructions: Nausea and Vomiting-Adult Activity Restrictions/Additional Instructions: I do recommend using the nausea medication as needed. Recommend a bland diet. It is important that you take your blood pressure medications. Contact your primary doctor and also your grinder operator automatic for follow-up. Return to the emergency department for any new or worsening symptoms. Prescriptions: New ondansetron 4 mg tablet,disintegrating 4 mg PO Q6H PRN (Reason: nausea and vomiting) Qty: 10 0RF No Action atenolol 50 mg tablet 50 mg PO BID duloxetine 60 mg capsule,delayed release(DR/EC) 60 mg PO DAILY atorvastatin [Lipitor] 10 mg tablet Qty: 0 aspirin 81 mg tablet,delayed release (DR/EC) Qty: 0 omeprazole 10 mg capsule,delayed release(DR/EC) Qty: 0 gabapentin [Neurontin] 300 mg capsule Qty: 0 tizanidine [Zanaflex] 2 mg capsule Qty: 0 naproxen [Naprosyn] 500 MG tablet 500 mg PO BIDCC Qty: 30 0RF acetaminophen 325 MG tablet 650 mg PO Qty: 0 lisinopril 20 mg tablet 20 mg PO DAILY Label Comments: TAKE ONE TABLET BY MOUTH ONE TIME DAILY hydrochlorothiazide 25 mg tablet 25 mg PO DAILY Label Comments: TAKE ONE TABLET BY MOUTH ONE TIME DAILY Referrals: Stephanie Yanes MD [Primary Care Provider] - Stand Alone Forms: Patient Portal/API
[2022-07-19] VITALS: PULSE 50; O2SAT 96
[2022-07-19 00:01] VITALS: BP 186/69; PULSE 50; O2SAT 97
[2022-07-19] MEDS: ONDANSETRON 4 MG ODT PREPACK 1 BOTTLE MISC (00:07)
[2022-07-19 00:16] VITALS: BP 189/108; PULSE 50; O2SAT 94
== END 2022-07-19 00:31 | disposition home or self-care (01) ==
PROVIDERS: Emergency Provider Emergency Medicine; PCP Dermatology
DX: I11.0 Hypertensive heart disease with heart failure (principal); R11.2 Nausea with vomiting, unspecified; R00.1 Bradycardia, unspecified; Z79.899 Other long term (current) drug therapy; Z20.822 Contact with and (suspected) exposure to COVID-19
CPT/HCPCS: 0241U; 36415; 80053; 82550; 82553; 83690; 84484; 85025; 93005; 99283; 99284

== ENCOUNTER → 2023-05-28 12:28 | Outpatient (CLI) | payer MEDICARE, OTHER, SELFPAY ==
[2023-05-28 13:00] LABS: Hematocrit 44.8 % (41-53); Hemoglobin 16.2 g/dL (13.5-17.5); Mean Corpuscular HGB Conc 36.2 % (30-36); Mean Corpuscular Volume 85.5 fL (80-100); Platelet Count 139 X10^3/uL (150-400); Red Blood Cell Count 5.24 X10^6/uL (4.5-5.9); Red Cell Distribution Width 13.3 % (11.6-14.8)
[2023-05-28 13:34] LABS: Alanine Aminotransferase 33 IU/L (<50); Albumin Globulin Ratio 1.6 (1.0-2.8); Alkaline Phosphatase 62 U/L (38-126); Aspartate Aminotransferase 25 IU/L (17-59); BUN Creatinine Ratio 24.1 (6-22); Bilirubin Total 0.9 mg/dL (0.2-1.3); Blood Urea Nitrogen 21 mg/dL (9-20); Calcium 9.5 mg/dL (8.4-10.2); Carbon Dioxide 34 mmol/L (22-32); Chloride 98 mmol/L (98-107); Cholesterol 126 mg/dL (140-199); Estimated Glomerular Filt Rate > 60 mL/min (>60); Globulin 2.5 g/dL (1.7-4.1); Glucose 128 mg/dL (80-110); HDL Cholesterol 33 mg/dL (40-60); HEMOLYSIS < 15 (0-50); LDL Cholesterol Calculated 62 mg/dL (<100); Potassium 3.9 mmol/L (3.4-5.1); Sodium 139 mmol/L (137-145); Total Protein 6.5 g/dL (6.3-8.2); Triglycerides 155 mg/dL (35-150)
[2023-05-28 13:54] LABS: TSH w/ Reflex to FT4 1.42 uIU/mL (0.47-4.68)
[2023-05-28 16:07] LABS: Creatinine Urine Random 169.8 mg/dL
[2023-05-28 16:09] LABS: Microalbumi Creatinin Ratio Ur 10.6 ug/mg CR (<30); Microalbumin Urine Random 1.8 mg/dL (0-1.6)
== END ==
PROVIDERS: PCP Internal Medicine; Referring Provider Internal Medicine; Visit Provider Internal Medicine
DX: E78.2 Mixed hyperlipidemia (principal); E11.42 Type 2 diabetes mellitus with diabetic polyneuropathy; I10 Essential (primary) hypertension
CPT/HCPCS: 36415; 80053; 80061; 82043; 82570; 83036; 84443; 85027

== ENCOUNTER 2024-07-18 09:38 | Emergency (ER) | payer MEDICARE, OTHER, SELFPAY ==
[2024-07-18] VITALS (16 sets, daily range): BP systolic 162–218; BP diastolic 74–105; PULSE 57–80; RESP 12–18; TEMP 37.3; O2SAT 96–99; BMI 30.1
--- NOTE | 2024-07-18 09:42 | ED.GENADULT ---
HPI - General Adult General Chief complaint: Hypertension Stated complaint: High Blood pressure, Sick to his stomach Time Seen by Provider: 07/18/24 09:41 History of Present Illness HPI narrative: 89-year-old man past medical history of hyperlipidemia, hypertension, diabetes, comes into the ED from home for evaluation of multiple complaints. Patient states that he has been feeling nauseous with abdominal pain ongoing persistent for the past 3 days, states that secondary to this has not been able to take any of his medications which include his high blood pressure medication and his diabetes medicines. Patient states that pain is cramping in nature nothing making it better or worse, states this happened a proximally 2 years ago but was told everything was ?okay at that time. Patient denies any other symptoms such as headache visual disturbances chest pain shortness breath fever chills or any other GI/ symptoms. No recent travel no known sick contacts not on any blood thinners no trauma no falls. Patient does have a history of bradycardia. Related Data Home Medications Medication Instructions Recorded Confirmed aspirin 81 mg tablet,delayed ##0 04/17/16 06/06/23 release duloxetine 60 mg capsule,delayed 60 mg PO DAILY 06/24/21 07/18/24 release hydrochlorothiazide 25 mg tablet 25 mg PO DAILY 07/18/22 07/18/24 atenolol 50 mg tablet 50 mg PO DAILY 03/06/23 07/18/24 atorvastatin 40 mg tablet 40 mg PO BEDTIME 03/06/23 07/18/24 dulaglutide 0.75 mg/0.5 mL 0.75 mg SUBCUT QWEEK 03/06/23 06/06/23 subcutaneous pen injector (Trulicity) lancing device (TRUEdraw Lancing #1 ea 03/06/23 06/06/23 Device) lisinopril 10 mg tablet 10 mg PO DAILY 03/06/23 06/06/23 ondansetron 4 mg disintegrating 4 mg translingual Q12H PRN 03/06/23 06/06/23 tablet nausea/vomiting pregabalin 100 mg capsule 100 mg PO BEDTIME 03/06/23 06/06/23 pregabalin 150 mg capsule 150 mg PO BEDTIME 03/06/23 07/18/24 tamsulosin 0.4 mg capsule 0.8 mg PO BEDTIME 03/06/23 07/18/24 Previous Rx's Medication Instructions Recorded ondansetron 4 mg disintegrating 4 mg PO Q8H PRN nausea and 07/18/24 tablet vomiting 5 days #15 tabs Allergies Allergy/AdvReac Type Severity Reaction Status Date / Time glipizide AdvReac Severe Vomiting Verified 07/18/24 09:55 metformin AdvReac Severe nausea/vomi Verified 07/18/24 09:55 ting nortriptyline AdvReac Severe Nightmare Verified 07/18/24 09:55 amoxicillin AdvReac Mild Doesn't Verified 07/18/24 09:55 remember Review of Systems Review of Systems Narrative: General: Denies fever, chills, weight loss HEENT: Denies headache, eye drainage, eye irritation, head trauma, sore throat, voice change Cardiovascular: Denies any chest pain, palpitations, shortness of breath, tachycardia Respiratory: Denies any shortness of breath, cough, wheeze, stridor GI/: Positive abdominal pain, nausea, vomiting, denies diarrhea, bright red blood per rectum, melanotic stools, urinary frequency, urinary retention, dysuria, hematuria MSK: Denies any joint pain, muscle pains, swelling Skin: Denies any rashes, lesions, discoloration Neuro: Denies any headache, lightheadedness, dizziness, fainting, weakness Psych: Denies SI/HI Patient History Medical History Migraine without aura, not intractable Generalized anxiety disorder History of colonic polyps BPH w urinary obs/LUTS Polyneuropathy, unspecified Mixed hyperlipidemia Essential hypertension Type 2 diabetes mellitus with polyneuropathy PTSD (post-traumatic stress disorder) Shoulder pain (~2002) Fractures (~1947) Foot pain (~2009) Mumps (~1944) Measles (~1945) Chicken pox (~1945) Tinnitus (~2008) Cataracts, bilateral (~2012) Diverticular disease (~2002) Surgical History Anesthesia History of colonoscopy (~1989) History of tonsillectomy (~1942) Family History Father Diabetes mellitus History of heart disease Hyperlipidemia Hypertension Mother Cancer Sister Breast cancer Hyperlipidemia Grandfather History of heart disease Grandmother Hip fracture Grandfather Diabetes mellitus Grandmother Cancer Social History details: (Tiffany), both parents MDs Smoking Status: Never smoker Smoking Status: Never smoker alcohol intake frequency: a few times a week Exam Narrative Exam Narrative: General: Cooperative, comfortable, well-developed, not in acute distress HEENT: Normocephalic, atraumatic, PERRLA, normal sclera, eyelids normal, Neck: Active full range of motion, atraumatic Chest: Normal to inspection, negative crepitus, no overlying erythema ecchymosis Respiratory: Normal respiratory effort, not in acute respiratory distress, clear to auscultation bilaterally negative cough, wheeze, tachypnea, rhonchi, rales Cardiology: Regular rate rhythm negative gallop, murmur, rubs GI/: Normal to inspection, soft, nonrigid, mild tenderness to palpation diffuse, exam deferred MSK: Full range of active range of motion of all 4 extremities, atraumatic Skin: No rashes lesions noted Neuro: Alert awake oriented x3, moves all 4 extremities spontaneously, cranial nerves intact, able to answer all questions appropriately follows commands appropriately Psych: Cooperative, negative suicidal or homicidal ideations Initial Vital Signs Initial Vital Signs: Vital Signs Temperature 99.2 F 07/18/24 09:55 Pulse Rate 73 07/18/24 09:55 Blood Pressure 218/105 H 07/18/24 09:55 Pulse Oximetry 97 07/18/24 09:55 Oxygen Delivery Method Room Air 07/18/24 09:55 Course Orders Ordered: ED Orders 07/18/24 09:55 VBG [Venous Blood Gas] STAT 07/18/24 09:56 CT abdomen pelvis w con Stat 07/18/24 10:07 Complete Blood Count AUTO DIFF Stat Comprehensive Metabolic Panel Stat Lipase Stat 07/18/24 10:09 Covid-19 + FLU A/B + RSV - PCR Stat 07/18/24 10:18 Venous Blood Gas Routine Famotidine (Famotidine 20 Mg/2 Ml Vial) 20 mg IV NOW CORA Discontinued Medications Sodium Chloride (Normal Saline 0.9%) 1,000 mls @ 1,000 mls/hr IV BOLUS ONE Stop: 07/18/24 10:54 Last Infusion: 07/18/24 11:26 Dose: Infused Documented By: Admin: 07/18/24 10:10 Dose: 1,000 mls/hr Documented By: HANY Ondansetron HCl (Ondansetron 4 Mg/2 Ml Inj) 4 mg IV NOW ONE Stop: 07/18/24 09:56 Last Admin: 07/18/24 10:26 Dose: 4 mg Documented By: ARTEMIO Vital Signs Vital signs: Vital Signs - 8 hr 07/18/24 09:55 07/18/24 09:56 07/18/24 10:00 Temperature 99.2 F Pulse Rate 73 80 Respiratory Rate 14 Blood Pressure 218/105 H 218/105 H Pulse Oximetry 97 96 Oxygen Delivery Method Room Air 07/18/24 10:00 07/18/24 10:30 07/18/24 10:30 Temperature Pulse Rate 65 57 L Respiratory Rate 12 13 Blood Pressure 183/74 H Pulse Oximetry 96 98 Oxygen Delivery Method 07/18/24 10:55 07/18/24 10:55 07/18/24 11:00 Temperature Pulse Rate 63 Respiratory Rate Blood Pressure 201/91 H 181/86 H Pulse Oximetry 99 Oxygen Delivery Method 07/18/24 11:00 07/18/24 11:30 07/18/24 11:30 Temperature Pulse Rate 61 57 L Respiratory Rate 12 Blood Pressure 162/79 H Pulse Oximetry 99 99 Oxygen Delivery Method 07/18/24 12:00 07/18/24 12:01 07/18/24 12:01 Temperature Pulse Rate 58 L 58 L Respiratory Rate 12 Blood Pressure 172/87 H Pulse Oximetry 99 97 Oxygen Delivery Method 07/18/24 12:30 07/18/24 13:00 07/18/24 13:01 Temperature Pulse Rate 67 57 L 57 L Respiratory Rate 14 14 Blood Pressure Pulse Oximetry 97 97 96 Oxygen Delivery Method 07/18/24 13:01 Temperature Pulse Rate Respiratory Rate Blood Pressure 205/97 H Pulse Oximetry Oxygen Delivery Method Medical Decision Making Differential Diagnosis Differential Diagnosis: Hyperglycemia, DKA, electrolyte abnormality, urinary tract infection Lab Data 07/18/24 10:07 07/18/24 10:07 Labs: Lab Results 07/18/24 07/18/24 07/18/24 Range/Units 10:07 10:09 10:18 WBC 9.0 (4.5-11.0) X10^3/uL RBC 5.92 H (4.5-5.9) X10^6/uL Hgb 18.6 H (13.5-17.5) g/dL Hct 51.7 (41-53) % MCV 87.3 (80-100) fL MCH 31.4 (26-34) PG MCHC 36.0 (30-36) % RDW 13.6 (11.6-14.8) % Plt Count 138 L (150-400) X10^3/uL Neut % (Auto) 74.5 (50-75) % Lymph % (Auto) 15.7 L (25-40) % Heard % (Auto) 8.5 (3-14) % Eos % (Auto) 0.7 L (2-4) % Baso % (Auto) 0.6 (0-2) % Neut # (Auto) 6700 (7558-1232) /uL Lymph # (Auto) 1400 (3892-6741) /uL Heard # (Auto) 800 (0-900) /uL Eos # (Auto) 100 (0-450) /uL Baso # (Auto) 100 (0-100) /uL VBG pH 7.45 H (7.33-7.43) VBG pCO2 42.3 L (45-50) mmHg VBG pO2 34 L (35-45) mmHg VBG HCO3 29 H (24-28) mmol/L VBG Total CO2 28 (24-29) mmol/L VBG O2 Saturation 68 L (70-75) % VBG Base Excess 4.6 H (0-4) mmol/L FiO2 % 21 % % Sodium 137 (137-145) mmol/L Potassium 3.5 (3.4-5.1) mmol/L Chloride 101 (98-107) mmol/L Carbon Dioxide 28 (22-32) mmol/L BUN 24 H (9-20) mg/dL Creatinine 0.98 (0.66-1.25) mg/dL Estimated GFR > 60 (>60) mL/min BUN/Creatinine Ratio 24.5 H (6-22) Glucose 148 H (80-110) mg/dL Calcium 9.6 (8.4-10.2) mg/dL Total Bilirubin 1.3 (0.2-1.3) mg/dL AST 40 (17-59) IU/L ALT 53 H (<50) IU/L Alkaline Phosphatase 53 (38-126) U/L Total Protein 7.3 (6.3-8.2) g/dL Albumin 4.7 (3.5-5.0) g/dL Globulin 2.6 (1.7-4.1) g/dL Albumin/Globulin Ratio 1.8 (1.0-2.8) Lipase 90 (23-300) U/L SARS-CoV-2 (PCR) Negative (Negative) Influenza A (RT-PCR) Flu a negative (NEGATIVE) Influenza B (RT-PCR) Flu b negative (NEGATIVE) RSV (PCR) Negative (Negative) Point of Care Testing Glucose POC 143 Urine Dip Bedside Urine Glucose Negative Bedside Urine Bilirubin - Negative Bedside Urine Ketone ++ 40 Urine Specific Cunningham 1.005 Bedside Urine Occult Blood - Negative Bedside Urine pH 7.0 Bedside Urine Protein - Negative Bedside Urine Urobilinogen - Negative Bedside Urine Nitrite - Negative Bedside Urine Leukocytes - Negative Esterase Point of care testing: Point of Care Testing Glucose POC 143 Urine Dip Bedside Urine Glucose Negative Bedside Urine Bilirubin - Negative Bedside Urine Ketone ++ 40 Urine Specific Cunningham 1.005 Bedside Urine Occult Blood - Negative Bedside Urine pH 7.0 Bedside Urine Protein - Negative Bedside Urine Urobilinogen - Negative Bedside Urine Nitrite - Negative Bedside Urine Leukocytes - Negative Esterase Imaging Data CT scan - abdomen/pelvis: Radiologist's Impression: [place] [address] CT Scan Report Signed Patient: Sy Reese MR#: [id number] : 1935 Acct:[id number] Age/Sex: 89 / M Date of Service: 07/18/24 Loc: ED Accession Number: [id number] Procedure: CT abdomen pelvis w con Ordering Provider: Gordon Tomlinson D.O. PROCEDURE: CT ABDOMEN PELVIS W CON INDICATIONS: diffuse abd pain, N/V TECHNIQUE: After the administration of intravenous contrast, axial sections acquired from the lung bases to the pubic symphysis. Coronal and sagittal reformats were performed. For radiation dose reduction, the following was used: automated exposure control, adjustment of mA and/or kV according to patient size. COMPARISON: None. FINDINGS: Image quality: Diagnostic Lower chest: Basal atelectasis/scarring. Coronary, annular, and valvular cardiac calcifications. Normal heart size. Liver: Multiple cysts are present. Subcentimeter lesions are too small to characterize, usually also cysts. Gallbladder and biliary system: Unremarkable, nondilated Pancreas: No ductal dilation Spleen: Borderline enlarged at 13 cm Adrenals: No discrete nodules Kidneys: No solid mass. No hydronephrosis. Vessels and lymph nodes: The main portal vein is patent. No abdominal aortic aneurysm. Atherosclerotic calcifications are seen. No pathologic lymph nodes by size criteria. Bowel and peritoneum: There are colonic diverticula. The appendix is nondilated. No small bowel obstruction. No pathologic ascites. Body wall: There are fat containing inguinal hernias and fat containing umbilical hernia. Pelvis: Bladder is unremarkable. Heterogeneous prostate enhancement is unremarkable on limited CT evaluation. Bones: No acute or suspicious osseous finding. There are degenerative changes. IMPRESSION: No small bowel obstruction. No acute abdominal pelvic abnormality. Other likely nonacute and incidental findings are described above. MDM Narrative Medical decision making narrative: 89-year-old male history of hyperlipidemia hypertension diabetes presents to the ED for evaluation of abdominal pain nausea vomiting ongoing persistent for the past 3 days, states that secondary to his symptoms has not been able to take any of his medications. Patient had CT scan performed here which did not show any acute findings, patient had complete resolution of symptoms after IV Zofran, patient still with mildly elevated blood pressure however not complaining of any headache visual disturbances, was instructed take home medications as prescribed. Patient was instructed to follow up with primary care outpatient setting strict return precautions were given verbalized understanding of this and agrees to being discharged home with outpatient follow up Discharge Plan Departure Patient Disposition: Home Clinical Impression: HTN (hypertension), Hyperglycemia, Nausea & vomiting Prescriptions: New ondansetron 4 mg tablet,disintegrating 4 mg PO Q8H PRN (Reason: nausea and vomiting) 5 Days Qty: 15 0RF No Action duloxetine 60 mg capsule,delayed release(DR/EC) 60 mg PO DAILY aspirin 81 mg tablet,delayed release (DR/EC) Qty: 0 tamsulosin 0.4 mg capsule 0.8 mg PO BEDTIME Patient Comments: TAKE TWO CAPSULES BY MOUTH EVERY NIGHT atorvastatin 40 mg tablet 40 mg PO BEDTIME Patient Comments: TAKE ONE TABLET BY MOUTH EVERY EVENING pregabalin 100 mg capsule 100 mg PO BEDTIME Patient Comments: TAKE ONE CAPSULE BY MOUTH ONE TIME DAILY WITH THE 150 MG DOSE. Rx Instructions: TAKE ONE CAPSULE BY MOUTH ONE TIME DAILY WITH THE 150 MG DOSE. pregabalin 150 mg capsule 150 mg PO BEDTIME Patient Comments: TAKE ONE CAPSULE BY MOUTH ONE TIME DAILY. USE WITH 100 MG DOSE. Rx Instructions: TAKE ONE CAPSULE BY MOUTH ONE TIME DAILY. USE WITH 100 MG DOSE. Trulicity 0.75 mg/0.5 mL pen injector 0.75 mg SUBCUT QWEEK Patient Comments: INJECT 0.5 MLS UNDER THE SKIN ONE TIME WEEKLY. (DME) lancing device [TRUEdraw Lancing Device] Misc See Rx Instructions .ROUTE .MEDSUPPLY Qty: 1 Patient Comments: USE TO TEST BLOOD GLUCOSE TWO TIMES DAILY Rx Instructions: As directed ondansetron 4 mg tablet,disintegrating 4 mg translingual Q12H PRN (Reason: nausea/vomiting) lisinopril 10 mg tablet 10 mg PO DAILY atenolol 50 mg tablet 50 mg PO DAILY hydrochlorothiazide 25 mg tablet 25 mg PO DAILY Patient Comments: TAKE ONE TABLET BY MOUTH ONE TIME DAILY Referrals: Ok Smauels MD [Physician] - Stand Alone Forms: Patient Portal/API/Survey
--- NOTE | 2024-07-18 09:56 | DI.CT.S_ITS ---
PROCEDURE: CT ABDOMEN PELVIS W CON INDICATIONS: diffuse abd pain, N/V TECHNIQUE: After the administration of intravenous contrast, axial sections acquired from the lung bases to the pubic symphysis. Coronal and sagittal reformats were performed. For radiation dose reduction, the following was used: automated exposure control, adjustment of mA and/or kV according to patient size. COMPARISON: None. FINDINGS: Image quality: Diagnostic Lower chest: Basal atelectasis/scarring. Coronary, annular, and valvular cardiac calcifications. Normal heart size. Liver: Multiple cysts are present. Subcentimeter lesions are too small to characterize, usually also cysts. Gallbladder and biliary system: Unremarkable, nondilated Pancreas: No ductal dilation Spleen: Borderline enlarged at 13 cm Adrenals: No discrete nodules Kidneys: No solid mass. No hydronephrosis. Vessels and lymph nodes: The main portal vein is patent. No abdominal aortic aneurysm. Atherosclerotic calcifications are seen. No pathologic lymph nodes by size criteria. Bowel and peritoneum: There are colonic diverticula. The appendix is nondilated. No small bowel obstruction. No pathologic ascites. Body wall: There are fat containing inguinal hernias and fat containing umbilical hernia. Pelvis: Bladder is unremarkable. Heterogeneous prostate enhancement is unremarkable on limited CT evaluation. Bones: No acute or suspicious osseous finding. There are degenerative changes. IMPRESSION: No small bowel obstruction. No acute abdominal pelvic abnormality. Other likely nonacute and incidental findings are described above. Dictated by: Edgar Morales M.D. on 07/18/2024 at 10:12 Approved by: Edgar Morales M.D. on 07/18/2024 at 10:16
[2024-07-18] MEDS: SODIUM CHLORIDE 0.9% 1,000 ML 1000 ML IV (10:10)
[2024-07-18 10:15] LABS: Add Manual Diff / Slide Review NO; Basophils Absolute Auto 100 /uL (0-100); Basophils Percent Auto 0.6 % (0-2); Eosinophils Absolute Auto 100 /uL (0-450); Eosinophils Percent Auto 0.7 % (2-4); Hematocrit 51.7 % (41-53); Hemoglobin 18.6 g/dL (13.5-17.5); Lymphocytes Absolute Auto 1400 /uL (1100-4500); Lymphocytes Percent Auto 15.7 % (25-40); Mean Corpuscular Hemoglobin 31.4 PG (26-34); Mean Corpuscular Volume 87.3 fL (80-100); Monocytes Absolute Auto 800 /uL (0-900); Monocytes Percent Auto 8.5 % (3-14); Neutrophils Absolute Auto 6700 /uL (1500-7000); Neutrophils Percent Auto 74.5 % (50-75); Platelet Count 138 X10^3/uL (150-400); Red Blood Cell Count 5.92 X10^6/uL (4.5-5.9); Red Cell Distribution Width 13.6 % (11.6-14.8)
[2024-07-18 10:21] LABS: Base Excess VBG 4.6 mmol/L (0-4); HCO3 VBG 29 mmol/L (24-28); Oxygen Saturation VBG 68 % (70-75); PCO2 VBG 42.3 mmHg (45-50); PO2 VBG 34 mmHg (35-45); Total CO2 VBG 28 mmol/L (24-29); pH VBG 7.45 (7.33-7.43)
[2024-07-18 10:23] LABS: Alanine Aminotransferase 53 IU/L (<50); Albumin 4.7 g/dL (3.5-5.0); Albumin Globulin Ratio 1.8 (1.0-2.8); Alkaline Phosphatase 53 U/L (38-126); Aspartate Aminotransferase 40 IU/L (17-59); BUN Creatinine Ratio 24.5 (6-22); Bilirubin Total 1.3 mg/dL (0.2-1.3); Blood Urea Nitrogen 24 mg/dL (9-20); Calcium 9.6 mg/dL (8.4-10.2); Carbon Dioxide 28 mmol/L (22-32); Chloride 101 mmol/L (98-107); Estimated Glomerular Filt Rate > 60 mL/min (>60); Globulin 2.6 g/dL (1.7-4.1); Glucose 148 mg/dL (80-110); HEMOLYSIS 18 (0-50); Lipase 90 U/L (23-300); Potassium 3.5 mmol/L (3.4-5.1); Sodium 137 mmol/L (137-145); Total Protein 7.3 g/dL (6.3-8.2)
[2024-07-18] MEDS: ONDANSETRON 4 MG/2 ML INJ IV (10:26)
[2024-07-18 10:49] LABS: Influenza A - CEPHEID Flu A NEGATIVE (NEGATIVE); Influenza B - CEPHEID Flu B NEGATIVE (NEGATIVE); Respiratory Syncytial Virus Negative (Negative)
[2024-07-18 10:50] LABS: COVID-19 CEPHEID 4-PLEX PCR Negative (Negative)
--- NOTE | 2024-07-18 13:28 | PC.NURSE ---
N/V ; states he thinks it is because of his blood pressure. Denies sick exposure. Denies diarrhea or constipation. No problems with urination (no burning, etc.)
--- NOTE | 2024-07-18 14:24 | PC.NURSE ---
Reassess; pt states he is feeling good and free from N/V. Respirations regular and unlabored.
== END 2024-07-18 14:26 | disposition home or self-care (01) ==
PROVIDERS: Emergency Provider Student in an Organized Health Care Education/Training Program
DX: I10 Essential (primary) hypertension (principal); R10.9 Unspecified abdominal pain; R11.2 Nausea with vomiting, unspecified; E11.65 Type 2 diabetes mellitus with hyperglycemia
CPT/HCPCS: 0241U; 74177; 80053; 81003; 82805; 82962; 83690; 85025; 96361; 96374; 99284; J2405; Q9967